=== PATIENT | male | born 1990 | race African-American/Black ===

== ENCOUNTER 2024-01-31 02:19 | Emergency (ER) | payer OTHER ==
[~2024-01-31] VITALS: Ht 175.3 cm; Wt 95.0 kg
[2024-01-31 02:23] VITALS: O2SAT 100
[2024-01-31 03:04] LABS: EOSINOPHILS % 4.2 % (0.0-5.0); HEMATOCRIT. 40.6 % (42.0-52.0); HEMOGLOBIN. 13.5 g/dL (14.0-18.0); LYMPHOCYTES % 36.6 % (20.0-50.0); MEAN CORPUSCULAR HEMOGLOBIN 28.9 pg (28.0-32.0); MEAN CORPUSCULAR HGB CONC 33.2 g/dL (31.0-37.0); MEAN PLATELET VOLUME 8.7 fl (7.4-10.4); NEUTROPHILS % 47.2 % (40.0-76.0); PLATELET 225 x1000/uL (130-400); RED BLOOD CELL COUNT 4.66 mill/uL (4.7-6.1); RED CELL DISTRIBUTION WIDTH 14.3 % (11.6-14.6); WHITE BLOOD COUNT 5.5 x1000/uL (4.5-11.0)
[2024-01-31 03:10] LABS: CHLORIDE 107 mEq/L (98-107); POTASSIUM 3.3 mEq/L (3.5-5.1); SODIUM 139 mEq/L (136-145)
[2024-01-31 03:11] LABS: CALCIUM 9.2 mg/dL (8.7-10.4); CARBON DIOXIDE 25 mEq/L (21-32)
[2024-01-31 03:16] LABS: GLUCOSE 108 mg/dL (70-105); UREA NITROGEN BLOOD 13 mg/dL (9-23)
[2024-01-31 04:28] LABS: TROPONIN I HIGH SENSITIVITY < 4 ng/L (3.0-53)
[2024-01-31 05:21] VITALS: BP 125/83; PULSE 70; RESP 20; TEMP 98
== END 2024-01-31 05:38 | disposition home or self-care (01) ==
LOC: ER 02:33
DX: F41.0 Panic disorder [episodic paroxysmal anxiety] (principal)
CPT/HCPCS: 36415; 71045; 80048; 83880; 84484; 85025; 93005; 99285